=== PATIENT | female | born 1965 | race Caucasian/White ===

== ENCOUNTER 2020-05-30 14:44 | Emergency (ER) | payer BC, SELFPAY ==
[2020-05-30 14:46] VITALS: BP 130/84; PULSE 82; RESP 16; TEMP 36.4; O2SAT 98; BMI 36.3
--- NOTE | 2020-05-30 15:26 | ED.DCSUM_ITS ---
History of Present Illness Informant: Patient Onset: Yesterday Context: Gradual Onset Timing: Continuous Quality: aching Location: myalgias Current Severity: Severe Maximum Severity: Severe Worsened by: movement Relieved by: rest Associated Symptoms: dyspnea on exertion Narrative: 55-year-old female daily smoker who does not regularly follow with a primary care physician presents to the emergency department with a fever. Patient states that she had a positive COVID test just over 2 weeks ago. Prior similar symptoms: Yes Recent Illness/Hospitalization: No <Heri Herrera - Last Filed: 05/30/20 17:26> <Tomas Vasquez - Last Filed: 05/30/20 22:26> Chief Complaint: Fever Past Medical History Prior records reviewed: Yes Past Medical History: None Surgical History: hysterectomy Lives: With Family Smoking Status: Current every day smoker Alcohol: Occasional Drugs: None <Heri Herrera - Last Filed: 05/30/20 17:26> <Tomas Vasquez - Last Filed: 05/30/20 22:26> - Allergies and Home Meds Allergies/Adverse Reactions: Allergies codeine Adverse Reaction (Verified 05/30/20 14:45) Upset Stomach Tetanus Vaccines and Toxoid [Tetanus Vaccines & Toxoid] Adverse Reaction (Verified 05/30/20 14:45) Swelling Primary Care Physician: Layo Braun MD [STAFF PHYSICIAN] - As soon as possible Review of Systems All systems negative except as indicated General: Reports: Chills, Fever. Denies: Sweats Eyes: Denies: Visual changes - bilaterally, Diplopia ENT: Denies: Rhinorrhea, Sore throat Cardiovascular: Denies: Chest pain, Palpitations, Heart racing Respiratory: Reports: Dyspnea, Cough, Dyspnea on exertion. Denies: Orthopnea, Paroxysmal nocturnal dyspnea Gastrointestinal: Denies: Abdominal pain, Nausea, Vomiting, Diarrhea, Melena, Hematochezia Genitourinary: Denies: Dysuria, Hematuria, Frequency Musculoskeletal: Reports: Myalgias. Denies: Arthralgias, Neck pain, Back pain, Swelling, Extremity Pain Skin: Denies: Rash, Abscess, Abrasions, Wounds Neurological: Denies: Headache, Weakness, Parasthesia, Numbness <Heri Herrera - Last Filed: 05/30/20 17:26> Physical Exam Vital Signs/Narrative: Vital Signs Temp Pulse Resp BP Pulse Ox 05/30/20 14:46 97.6 F L 82 16 130/84 H 98 Inital Vital Signs reviewed: Yes General: Well nourished, Well developed, No Acute Distress Head: Normocephalic, Atraumatic Eyes: Perrl, EOMI ENT: Moist mucous membranes, No rhinorrhea Neck: Supple, Nontender Cardiovascular: Regular rate, Regular rhythm, No murmurs Respiratory: No distress, CTA bilaterally, Chest nontender Abdomen: Soft, Nontender, Nondistended, Normal bowel sounds Back: Nontender, Normal Inspection Extremities: Nontender, No edema Skin: Normal color, No rash Neurological: Alert, Oriented x3, Cranial nerves II-XII grossly intact, Normal Strength, Normal Sensation Psychological: Normal affect, Normal Mood <Heri Herrera - Last Filed: 05/30/20 17:26> Diagnostic/Tx/Re-eval Chest X-Ray - ED: 1 View, Read by ED Physician, Read by Radiologist, No Acute Disease - Medical Decision Making Patient is well-appearing she has normal stable vital signs she is not short of breath. She was given albuterol. Chest x-ray unremarkable. We sent off another coronavirus test. Patient has likely undiagnosed COPD. Will discharge home with a short course of prednisone. I prescribed her an albuterol inhaler. At this time she will continue to quarantine until her coronavirus test returns but we feel she is safe for discharge <Heri Herrera - Last Filed: 05/30/20 17:26> - Medical Decision Making Seen and evaluated independently and in conjunction with physician assistant press operator offset. Agree with notes above unless documented otherwise. Basically, after recovering from COVID, she presents with similar syndrome again. Her viral respiratory panel is negative, we sent off a COVID test, I agree with treating her empirically with prednisone and albuterol, she is well- appearing with clear lungs and no edema in her legs. <Tomas Vasquez - Last Filed: 05/30/20 22:26> ED Disposition <Heri Herrera - Last Filed: 05/30/20 17:26> <Tomas Vasquez - Last Filed: 05/30/20 22:26> - Plan for ED Patient: Disposition: Home or Assisted Living Diagnosis: Viral URI with cough Instructions: ED URI Viral Prescriptions: Prednisone [Deltasone] 40 mg PO DAILY #10 tab Transmission Status: Received by [id number] Albuterol Inhaler [Ventolin Hfa] 1 - 2 puff INHALATION Q4H PRN PRN #1 inhaler PRN Reason: Wheezing Transmission Status: Received by [id number] Referrals: Layo Braun MD [STAFF PHYSICIAN] - As soon as possible
--- NOTE | 2020-05-30 15:46 | RAD_ITS ---
STUDY: X-RAY CHEST REASON FOR EXAM: Female, 55 years old. DYSPNEA TECHNIQUE: Frontal view of the chest COMPARISON: November 06 2013 FINDINGS: The lungs are clear and expanded. There is no demonstrated pleural abnormality. Normal size heart. Normal mediastinum and nataly. Normal visualized pulmonary arteries. Normal visualized aortic arch and descending thoracic aorta. Normal visualized thoracic spine. Normal visualized ribs, clavicles, and shoulders. There is no demonstrated abnormality of the visualized soft tissue structures of the upper abdomen. RAD/Chest 1 View (Portable) IMPRESSION: Normal x-ray examination of the chest. Electronically Signed: Char Munoz, at 16:22 EDT Tel , Service support ,
[2020-05-30 16:36] VITALS: PULSE 75; RESP 18; O2SAT 95
[2020-05-30 17:34] VITALS: BP 136/82; PULSE 74; RESP 15; O2SAT 96
[2020-05-30] MEDS: predniSONE 20 MG Tablet 60 MG PO (17:42)
== END 2020-05-30 17:44 | disposition home or self-care (01) ==
PROVIDERS: Emergency Provider Physician Assistant Medical; PCP Family Medicine
DX: J06.9 Acute upper respiratory infection, unspecified (principal); F17.200 Nicotine dependence, unspecified, uncomplicated
CPT/HCPCS: 71045; 87633; 87635; 94640; 99283; U0003